=== PATIENT | female | born 1970 | race Caucasian/White ===

== ENCOUNTER 2024-02-02 10:45 | Day surgery (SDC) | payer MEDICAID ==
[~2024-02-02] VITALS: Ht 175.3 cm; Wt 117.4 kg
[2024-02-02] VITALS (13 sets, daily range): BP systolic 106–176; BP diastolic 68–100; PULSE 67–94; RESP 9–22; TEMP 98.5; O2SAT 94–100
[~2024-02-02 10:45] MED LIST: CYCL-1 PO; HYDR-4383 PO; IBUP-1984 PO; LORA1TAB PO; MILK200C4 PO; MULT-925 PO
[2024-02-02] MEDS ORDERED: midazolam 1 mg/ML 2ml injection ONE ×2 (11:35→12:31)
[2024-02-02] MEDS ORDERED: fentaNYL/PF 50MCG/1 ML 2ML syringe ONE ×2 (11:35→12:44)
[2024-02-02] MEDS ORDERED: LIDOcaine 1% 30ml preserv. free vial ONE (11:35)
[2024-02-02] MEDS ORDERED: iohexol 350 MG/ML 50ML vial IV ONE (11:36)
[2024-02-02] MEDS ORDERED: iohexol 350MG/ML 100ml bottle IV ONE (11:36)
[2024-02-02 11:40] LABS: BASOPHILS % (AUTO) 0.4 % (0-1); EOSINOPHILS # (AUTO) 0.2 X10'3 (0-0.9); EOSINOPHILS % (AUTO) 2.3 % (0-6); HEMATOCRIT 45.5 % (35.0-45.0); HEMOGLOBIN 15.3 g/dl (12.0-16.0); LYMPHOCYTES # (AUTO) 3.4 X10'3 (1.1-4.8); LYMPHOCYTES % (AUTO) 40.4 % (21-51); MEAN CORPUSCULAR HEMOGLOBIN 28.8 PG (27.0-31.0); MEAN CORPUSCULAR HGB CONC 33.6 g/dL (33.0-36.5); MEAN CORPUSCULAR VOLUME 85.8 FL (78-98); MEAN PLATELET VOLUME 8.4 FL (7.4-10.4); MONOCYTES # (AUTO) 0.5 X10'3 (0-0.9); MONOCYTES % (AUTO) 5.7 % (2-12); NEUTROPHILS # (AUTO) 4.3 X10'3 (1.8-7.7); NEUTROPHILS % (AUTO) 51.2 % (42-75); PLATELET COUNT 230 X10'3 (140-440); RED CELL DISTRIBUTION WIDTH 13.7 % (11.5-14.5); WHITE BLOOD COUNT 8.3 X10'3 (4.5-11.0)
[2024-02-02] MEDS ORDERED: nitroGLYCERIN 0.4mg SUBLingual tab SL PRN ×2 (11:45→13:25)
[2024-02-02 11:47] LABS: ALBUMIN 4.5 G/DL (3.4-5.0); ANION GAP 9 (8-16); BLOOD UREA NITROGEN 8 MG/DL (7-18); BUN/CREATININE RATIO 10.1 (10.0-20.0); CALCIUM 9.5 MG/DL (8.5-10.1); CHLORIDE 105 MMOL/L (99-107); CREATININE 0.79 MG/DL (0.40-0.90); GLUCOSE 103 MG/DL (70-104); POTASSIUM 3.8 MMOL/L (3.5-5.1); SODIUM 142 MMOL/L (135-145); TOTAL CARBON DIOXIDE 28.3 MMOL/L (24-32); eCRCL 84 ML/MIN; eGFR 76 ML/MIN
[2024-02-02 11:52] LABS: APTT 24 SECONDS (22-32); INR 0.9 INR; PROTHROMBIN TIME 9.9 SECONDS (9.0-12.0)
[2024-02-02] MEDS: diphenhydrAMINE 25mg capsule PO PRN (12:11)
[2024-02-02] MEDS: LORazepam 0.5 MG tablet PO PRN (12:11)
[2024-02-02] MEDS: normal saline 1,000 ML IV SCH (12:11)
[2024-02-02] MEDS ORDERED: OXYC1TAB17 PO (12:13)
[2024-02-02] MEDS ORDERED: ACYC-126 PO (12:15)
[2024-02-02] MEDS ORDERED: NAPR220T67 PO (12:17)
[2024-02-02] MEDS ORDERED: MULT-1141 PO (12:18)
[2024-02-02] MEDS ORDERED: melatonin (12:20)
[2024-02-02] MEDS ORDERED: FAMO20TA8 PO (12:20)
[2024-02-02] MEDS ORDERED: BACL20TA PO (12:20)
[2024-02-02] MEDS ORDERED: proCHLORperazine 10 MG/2 ml inj ONE (12:36)
[2024-02-02] MEDS ORDERED: ondansetron/PF 4mg/2ml inj IV PRN (13:25)
[2024-02-02] MEDS ORDERED: OXAZEpam 15mg capsule PO PRN (13:25)
[2024-02-02] MEDS ORDERED: normal saline 1000ml 1,000 ML IV SCH (13:25)
[2024-02-02] MEDS ORDERED: acetaminophen 325mg tablet PO PRN (13:25)
[2024-02-02] MEDS ORDERED: proCHLORperazine 10 MG/2 ml inj IV PRN (13:25)
[2024-02-02] MEDS ORDERED: HYDROcodone/acetaminophen 5mg/325mg tablet PO PRN (13:25)
[2024-02-02] MEDS ORDERED: HYDROcodone/acetaminophen 10/325mg tab PO PRN (13:25)
== END 2024-02-02 20:00 | disposition home or self-care (01) ==
LOC: SSTAY O 10:45
PROVIDERS: ATTEND Internal Medicine Cardiovascular Disease
DX: R94.39 Abnormal result of other cardiovascular function study (principal); I25.10 Atherosclerotic heart disease of native coronary artery without angina pectoris; I25.2 Old myocardial infarction; E66.01 Morbid (severe) obesity due to excess calories; M79.7 Fibromyalgia; F31.9 Bipolar disorder, unspecified; Z68.38 Body mass index [BMI] 38.0-38.9, adult; Z88.2 Allergy status to sulfonamides; Z88.5 Allergy status to narcotic agent
CPT/HCPCS: 36415; 71046; 80048; 85025; 85610; 85730; 93005; 93458; 99152; J0780; J1644; J2250; J3010; J3490; J7030; Q0163; Q9967; 99153; A6258; C1760